=== PATIENT | female | born 1955 | race Two or more races ===

== ENCOUNTER 2023-02-23 13:12 | Day surgery (SDC) | payer MEDICARE, OTHER ==
[2023-02-21 10:10] LABS: Basophils # (auto) 0 10 ^3/uL (0-0.2); Basophils % (auto) 0.6 % (0.0-2.0); Eosinophils # (auto) 0.2 10 ^3/uL (0-0.8); Eosinophils % (auto) 2.9 % (0.0-7.0); Lymphocytes # (auto) 1.7 10 ^3/uL (0.4-5.4); Lymphocytes % (auto) 21.8 % (10.0-50.0); Monocytes # (auto) 0.7 10 ^3/uL (0-1.3); Monocytes % (auto) 8.8 % (0.0-12.0); Neutrophils # (auto) 5.1 10 ^3/uL (1.6-8.6); Neutrophils % (auto) 65.9 % (37.0-80.0); White Blood Cell 7.7 10^3/uL (4.4-10.8)
[2023-02-21 10:11] LABS: Hematocrit 36.5 % (36.0-46.0); Hemoglobin 11.8 g/dL (12.2-16.2); Mean Corpuscular Hemoglobin 27.5 pg (28.0-32.0); Mean Corpuscular Hgb Conc. 32.4 g/dL (32.0-36.0); Mean Corpuscular Volume 84.9 fL (80.0-100.0); Red Cell Distribution Width 15.1 % (11.8-14.3)
[2023-02-21 10:19] LABS: INR 0.89 (0.9-1.15); Partial Thromboplastin Time 26.5 sec (24.6-33.4)
[2023-02-21 10:27] LABS: Potassium 4.3 mmol/L (3.5-5.1)
[2023-02-21 10:39] LABS: Albumin 3.2 g/dL (3.4-5.0); BUN/Creatinine Ratio 23.2 (10.0-20.0); Bilirubin, Total 0.3 mg/dL (0.2-1.0); Calcium 8.9 mg/dL (8.5-10.1)
[~2023-02-23] VITALS: Ht 154.9 cm; Wt 81.6 kg
[~2023-02-23 13:12] MED LIST: ASPI81CH59 PO; DULA1INJ SC; GABA300C10 PO; GLIP5TAB12 PO; LOPE1TAB9 PO; LOSA-69 PO; METF-490 PO; METO25TA93 PO; SITA100T7 PO
[2023-02-23] MEDS ORDERED: ONDANSETRON HCL 4 MG/2 ML VIAL IV ONE (14:45)
[2023-02-23] MEDS: diphenhdrAMINE HCL 50 MG/1 ML VL ONE ×2 (15:12→15:14)
[2023-02-23] MEDS: fentaNYL CITRATE 100 MCG/2 ML VL ONE ×3 (15:12→15:19)
[2023-02-23] MEDS: MIDAZOLAM HCL 2MG/2ML 2ml VIAL (1mg/ml) ONE ×3 (15:12→15:19)
[2023-02-23 16:05] VITALS: BP 135/75
== END 2023-02-23 16:20 | disposition home or self-care (01) ==
LOC: GI 13:12
PROVIDERS: ATTEND Internal Medicine Gastroenterology
DX: K52.9 Noninfective gastroenteritis and colitis, unspecified (principal); K63.5 Polyp of colon; K63.89 Other specified diseases of intestine; K64.8 Other hemorrhoids; K21.9 Gastro-esophageal reflux disease without esophagitis; D64.9 Anemia, unspecified; Z79.84 Long term (current) use of oral hypoglycemic drugs; E11.9 Type 2 diabetes mellitus without complications; Z88.8 Allergy status to other drugs, medicaments and biological substances; Z79.82 Long term (current) use of aspirin; Z90.49 Acquired absence of other specified parts of digestive tract; Z98.890 Other specified postprocedural states; Z20.822 Contact with and (suspected) exposure to COVID-19
CPT/HCPCS: 36415; 45380; 80053; 82962; 85025; 85610; 85730; 88305; J1200; J2250; J2405; J3010; J7030; U0003